=== PATIENT | female | born 2000 | race Caucasian/White ===

== ENCOUNTER 2024-11-04 10:30 | Emergency (ER) | payer OTHER, BC ==
[~2024-11-04] VITALS: Ht 162.6 cm; Wt 54.4 kg
[2024-11-04 10:32] VITALS: BP 117/64; PULSE 85; RESP 18; TEMP 98; O2SAT 99
[2024-11-04 11:02] VITALS: BP 117/66; PULSE 88; RESP 18; TEMP 98; O2SAT 99
[2024-11-04 11:27] LABS: BASOPHIL % 0.3 % (0.1-1.2); EOSINOPHIL # 0.1 10^3/uL (0.0-0.2); EOSINOPHIL % 0.8 % (0.0-5.0); HEMATOCRIT(ML) 41.4 % (36.0-46.0); HEMOGLOBIN 13.2 g/dL (12.0-15.0); LYMPHOCYTES % 14.6 % (24.0-44.0); MEAN CORP HGB 30.6 pg (26-34); MEAN CORP HGB CONCENTRATION 31.9 g/dL (33-36.5); MEAN CORP VOLUME 95.8 fL (78-100); MONOCYTES # 0.5 10^3/uL (0.3-0.8); MONOCYTES % 6.6 % (5.0-12.0); NEUTROPHIL # 5.9 10^3/uL (1.8-7.7); NEUTROPHILS % 77.4 % (41.0-85.0); PLATELET COUNT 249 10^3/uL (150-400); RED BLOOD CELL 4.32 10^6/uL (4.00-5.20); RED CELL DISTRIBUTION WIDTH 12.8 % (11.5-14.5); WHITE BLOOD CELL 7.6 10^3/uL (4.5-11.0)
[2024-11-04 11:31] LABS: +ADD MANUAL DIFF(NO CHRG) NO
[2024-11-04 11:32] VITALS: BP 123/76; PULSE 75; RESP 18; TEMP 98; O2SAT 99
[2024-11-04 11:42] LABS: ALBUMIN/GLOBULIN RATIO 1.333; ANION GAP 8.8; BUN/CREATININE RATIO 17.1 (10.0-20.0); CALCIUM 8.9 mg/dL (8.4-10.5); CARBON DIOXIDE 25.6 mmol/L (20.0-32); CREATININE SERUM 0.76 mg/dL (0.59-1.40); EST GFR, NON-AA 93.5 (>/=60); POTASSIUM 3.4 mmol/L (3.6-5.2)
[2024-11-04 12:02] VITALS: BP 128/69; PULSE 81; RESP 18; TEMP 98; O2SAT 99
[2024-11-04] MEDS ORDERED: TORADOL ONE (12:26)
[2024-11-04] MEDS ORDERED: OFIRMEV 1000 MG/100 ML 100 ML IV ONE (12:26)
[2024-11-04] MEDS: OFIRMEV 1000 MG/100 ML 100 ML IV STA (12:33)
[2024-11-04] MEDS: TORADOL IV STA (12:33)
[2024-11-04 12:39] VITALS: BP 136/85; PULSE 72; RESP 18; TEMP 98; O2SAT 99
== END 2024-11-04 12:46 | disposition home or self-care (01) ==
LOC: ER 10:30
DX: S93.401A Sprain of unspecified ligament of right ankle, initial encounter (principal); F12.90 Cannabis use, unspecified, uncomplicated; V89.2XXA Person injured in unspecified motor-vehicle accident, traffic, initial encounter; Y93.89 Activity, other specified; Y92.410 Unspecified street and highway as the place of occurrence of the external cause; Y99.8 Other external cause status
CPT/HCPCS: 99284; 96374; 70450; 96375; 73610; 80053; 85025; 36415; J1885; J0131